=== PATIENT | male | born 1985 | race African-American/Black ===

== ENCOUNTER 2016-08-14 01:17 | Emergency (ER) | payer SELFPAY ==
[2016-08-14 01:20] VITALS: BP 139/72; PULSE 93; RESP 18; O2SAT 99
[2016-08-14] MEDS ORDERED: DIPHTH/TETANUS/ACEL PERTUSSIS (BOOSTER) 0.5 ML VIAL/PFS IM ONE (01:25)
[2016-08-14] MEDS ORDERED: ceFAZolin 2 GM PREMIX 50 ML ONE (01:25)
[2016-08-14 01:30] VITALS: BP 120/56; PULSE 80; RESP 18; O2SAT 98
[2016-08-14] MEDS ORDERED: SODIUM CHLORIDE 0.9% FLUSH 10 ML FLUSH IVF PRN (01:30)
[2016-08-14] MEDS ORDERED: ceFAZolin 2 GM PREMIX 50 ML IV ONE (01:30)
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
[2016-08-14] MEDS ORDERED: IOHEXOL 350 MG/ML 10 ML VIAL (for RAD DIAG) IV ONE (01:52)
[2016-08-14 01:54] VITALS: BP 123/56; PULSE 79; RESP 14; TEMP 98.5; O2SAT 97
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
[2016-08-14 02:07] LABS: BICARBONATE 25.3 MEQ/L (21.0-32.0); POTASSIUM 4.6 MEQ/L (3.5-5.1)
[2016-08-14 02:12] LABS: AUTOMATED NEUTROPHIL # 4.1 TH/MM3 (1.8-7.7); BASOPHIL % 0.4 % (0.0-2.0); EOSINOPHIL # 0.1 TH/MM3 (0-0.4); EOSINOPHIL % 1.7 % (0.0-4.0); HEMATOCRIT 35.5 % (39.0-51.0); HEMO FLAGS DIFF FINAL; LYMPH % 16.7 % (9.0-44.0); MEAN CELL VOLUME 83.7 FL (80.0-100.0); MEAN CORPUSCULAR HGB CONC 33.4 % (32.0-36.0); MONO % 9.8 % (0.0-8.0); NEUT % 71.4 % (16.0-70.0); PLATELET COUNT 149 TH/MM3 (150-450); RED BLOOD COUNT 4.24 MIL/MM3 (4.50-5.90); RED CELL DISTRIBUTION WIDTH 13.8 % (11.6-17.2); WHITE BLOOD COUNT 5.8 TH/MM3 (4.0-11.0)
[2016-08-14 02:23] LABS: APTT (PATIENT) 29.3 SEC (24.3-30.1); PROTHROMBIN TIME - PATIENT 10.5 SEC (9.8-11.6)
--- NOTE | 2016-08-14 02:28 | PD ---
Physical Exam Time Seen by Provider: 02:27 Data Data Last Documented VS Vital Signs Date Time Temp Pulse Resp B/P Pulse Ox O2 Delivery O2 Flow Rate FiO2 08/14/16 01:54 98.5 79 14 123/56 97 Room Air 08/14/16 01:30 2 Orders Cefazolin 2 Gm Premix (Ancef 2 Gm Premix (08/14/16 01:25) [id number] (Booster) Inj (Boostrix (08/14/16 01:25) Basic Metabolic Panel (Bmp) (08/14/16 01:27) Complete Blood Count With Diff (08/14/16 01:27) Prothrombin Time / Inr (Pt) (08/14/16:27) Act Partial Throm Time (Ptt) (08/14/16:27) Type And Screen (08/14/16 01:27) Chest, Single Ap (08/14/16 01:27) Ct Thorax/ Chest W Iv Contrast (08/14/16 01:27) Iv Access Insert/Monitor (08/14/16 01:27) Ecg Monitoring (08/14/16:27) Oximetry (08/14/16 01:27) Oxygen Administration (08/14/16 01:27) Cefazolin 2 Gm Premix (Ancef 2 Gm Premix (08/14/16 01:30) Sodium Chloride 0.9% Flush (Ns Flush) (08/14/16 01:30) Alcohol (Ethanol) (08/14/16 01:29) Iohexol 350 Inj (Omnipaque 350 Inj) (08/14/16 01:52) Labs Laboratory Tests Test 08/14/16 08/14/16 01:29 01:55 Sodium Level 141 MEQ/L Potassium Level 4.6 MEQ/L Chloride Level 106 MEQ/L Carbon Dioxide Level 25.3 MEQ/L Anion Gap 10 MEQ/L Blood Urea Nitrogen 8 MG/DL Creatinine 1.33 MG/DL Estimat Glomerular Filtration 56 ML/MIN Rate Random Glucose 95 MG/DL Calcium Level 8.7 MG/DL Ethyl Alcohol Level 163 MG/DL White Blood Count 5.8 TH/MM3 Red Blood Count 4.24 MIL/MM3 Hemoglobin 11.9 GM/DL Hematocrit 35.5 % Mean Corpuscular Volume 83.7 FL Mean Corpuscular Hemoglobin 28.0 PG Mean Corpuscular Hemoglobin 33.4 % Concent Red Cell Distribution Width 13.8 % Platelet Count 149 TH/MM3 Mean Platelet Volume 9.1 FL Neutrophils (%) (Auto) 71.4 % Lymphocytes (%) (Auto) 16.7 % Monocytes (%) (Auto) 9.8 % Eosinophils (%) (Auto) 1.7 % Basophils (%) (Auto) 0.4 % Neutrophils # (Auto) 4.1 TH/MM3 Lymphocytes # (Auto) 1.0 TH/MM3 Monocytes # (Auto) 0.6 TH/MM3 Eosinophils # (Auto) 0.1 TH/MM3 Basophils # (Auto) 0.0 TH/MM3 CBC Comment DIFF FINAL Differential Comment Prothrombin Time 10.5 SEC Prothromb Time International 1.0 RATIO Ratio Activated Partial 29.3 SEC Thromboplast Time MDM Medical Record Reviewed: Yes Supervised Visit with BAM: No Procedures Procedure Narrative LACERATION LOCATION: Left chest wall LENGTH: 2 cm x 2 cm NUMBER OF STITCHES/KO: 3 ko REPAIR: The area of the laceration was prepped with Betadine and sterilely draped. The wound was copiously irrigated and explored without evidence of foreign body, tendon injury or neurovascular injury. The wound was closed using ko. This was a single layer repair. A sterile dressing was applied. The patient was advised to keep the dressing clean and dry. Patient tolerated the procedure well. Diagnosis Primary Impression: Laceration of chest wall Qualified Code: S21.112A - Laceration of chest wall, left, initial encounter Additional Impression: Alcohol intoxication Qualified Code: F10.120 - Alcohol intoxication, uncomplicated Scripts No Active Prescriptions or Reported Meds Disposition: 01 DISCHARGE HOME Condition: Stable IsraelNatasha june CARMELA August 14, 2016 02:28
== END 2016-08-14 06:36 | disposition home or self-care (01) ==
LOC: NEPI 01:17 → EDBD 01:17 → NEPE 06:36
DX: S21.112A Laceration without foreign body of left front wall of thorax without penetration into thoracic cavity, initial encounter (principal); R06.02 Shortness of breath; F10.120 Alcohol abuse with intoxication, uncomplicated; Z23 Encounter for immunization; Y90.6 Blood alcohol level of 120-199 mg/100 ml; X99.9XXA Assault by unspecified sharp object, initial encounter
CPT/HCPCS: 12002; 71010; 71260; 80048; 80307; 85025; 85610; 85730; 90471; 90715; 96374; 99285; J0690; Q9967

== ENCOUNTER 2016-08-27 17:56 | Emergency (ER) | payer SELFPAY ==
[~2016-08-27] VITALS: Ht 170.2 cm; Wt 92.0 kg
[2016-08-27 17:57] VITALS: BP 147/87; PULSE 84; RESP 18; TEMP 98.3; O2SAT 99
--- NOTE | 2016-08-27 18:09 | PD ---
Physical Exam Time Seen by Provider: 18:07 Narrative 30yo M presents for staple removal to left chest. Been in place for about 15 days. Denies fever or vomiting. Patient seen in triage. Awaiting bed placement. VS reviewed. Data Data Last Documented VS Vital Signs Date Time Temp Pulse Resp B/P Pulse Ox O2 Delivery O2 Flow Rate FiO2 08/27/16 17:57 98.3 84 18 147/87 99 MDM Supervised Visit with BAM: No Scripts No Active Prescriptions or Reported Meds Shantel Lemus August 27, 2016 18:09
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
== END 2016-08-27 19:06 | disposition home or self-care (01) ==
LOC: NEPK 17:56
DX: Z48.02 Encounter for removal of sutures (principal)
CPT/HCPCS: 99281